=== PATIENT | female | born 1995 | race Caucasian/White ===

== ENCOUNTER → 2022-04-12 09:00 | Outpatient (CLI) | payer OTHER, MEDICAID, SELFPAY ==
--- NOTE | 2022-04-12 09:03 | DI.ECHO.S_ITS ---
[facility]---------+ [facility] +---------+ : : [address] : [address] [address] : : : : [id number] : : : : Phone: [phone]---------+ Echocardiogram Report + + :Name: LADONNA MOODY Study Date: 04/12/2022 Height: 67 in : :[facility] ReadingLocation: Weight: 130 lb: : Gender: Female BSA: 1.7 m2 : :: 1995 Age: 27 yrs BP: 95/66 mmHg: :Reason For Study: LEFT ATRIAL ENLARGEMENT, TACHYCARDIA : :Ordering Physician: NOLVIA, : :PAVAN Performed By: Shaunna Otero : :Referring: PAVAN DE SOUZA : + + Interpretation Summary Sinus arrhythmia noted and possisble pause with junctional escape noted. The left ventricle is normal in size and wall thickness. Left ventricular systolic function appears normal without focal wall motion abnormalities. The ejection fraction is estimated to be 60-65%. Diastolic parameters suggest probable normal left ventricular diastolic function and normal filling pressures. The right ventricle is normal in size and function. The right ventricular systolic pressure is estimated to be at least 20 mmHg based on an estimated right atrial pressure of 3 mm Hg. The left atrial size is normal. Right atrial size is normal. There is no significant valvular heart disease. The aortic root is normal size. Procedure: A two-dimensional transthoracic echocardiogram with color flow and Doppler was performed. The study quality was technically adequate. Comparison is made with the echocardiogram of 05/12/2015. The patient was in sinus tachycardia with heart rates between 91-105 bpm during the exam. Left Ventricle: The left ventricle is normal in size and wall thickness. Left ventricular systolic function appears normal without focal wall motion abnormalities. The ejection fraction is estimated to be 60-65%. Diastolic parameters suggest probable normal left ventricular diastolic function and normal filling pressures. Right Ventricle: The right ventricle is normal in size and function. Atria: The left atrial size is normal. Right atrial size is normal. The interatrial septum grossly appears intact with no obvious evidence for an atrial septal defect. Mitral Valve: The mitral valve is normal in structure and function. There is no mitral regurgitation noted. Aortic Valve: The aortic valve is trileaflet. The aortic valve opens well. There is no aortic valve stenosis. No aortic regurgitation is present. Tricuspid Valve: The tricuspid valve is normal in structure and function. There is mild tricuspid regurgitation. The right ventricular systolic pressure is estimated to be at least 20 mmHg based on an estimated right atrial pressure of 3 mm Hg. Pulmonic Valve: The pulmonic valve leaflets are thin and pliable; valve motion is normal. There is no pulmonic valvular regurgitation. There is no significant valvular heart disease. Great Vessels: The aortic root is normal size. The dimensions of the ascending aorta are normal. The IVC is of normal diameter and collapses greater than 50% with a sniff. This suggests a low right atrial pressure of 3 mm Hg. Pericardium/ Pleura There is no pericardial effusion. There is no pleural effusion. MMode/2D Measurements & Calculations LVIDd: 4.5 cm LVOT diam: 2.0 cm LVIDs: 2.9 cm Ao root diam: 2.7 cm FS: 36.2 % asc Aorta Diam: 2.7 cm EPSS: 0.25 cm Ao Arch Diam (Prox Trans): 2.0 cm IVSd: 0.55 cm LVPWd: 0.65 cm LV [place]. diameter/BSA (cm/m^2): 2.7 LV sys. diameter/BSA (cm/m^2): 1.7 LA A2 area: 15.6 cm2 RA long axis: 4.4 cm LA A4 area: 10.8 cm2 RA area: 12.8 cm2 LA length (vol): 4.5 cm RA vol: 31.9 ml LA vol: 32.0 ml RA : 19.0 ml/m2 LA vol index: 19.0 ml/m2 IVC diam: 1.3 cm RVD1 (basal): 2.6 cm RVD2 (mid): 2.2 cm TAPSE: 2.0 cm Doppler Measurements & Calculations Ao V2 max: 133.7 cm/sec LVOT Max Alberto: 110.1 cm/sec Ao V2 mean: 93.8 cm/sec LV V1 max P.9 mmHg Ao max P.2 mmHg LV V1 VTI: 19.2 cm Ao mean P.9 mmHg CÉSAR(I,D): 2.3 cm2 Ao V2 VTI: 26.2 cm CÉSAR(V,D): 2.6 cm2 sev ratio: 0.73 CÉSAR indexed to BSA (cm^2/m^2): 1.4 MV E max alberto: 67.5 cm/sec TR max alberto: 209.8 cm/sec MV A max alberto: 68.4 cm/sec TR max P.6 mmHg MV E/A: 0.99 PA V2 max: 98.0 cm/sec Med Peak E' Alberto: 13.4 cm/sec PA V2 mean: 66.1 cm/sec E/E' med: 5.0 PA mean P.0 mmHg Lat Peak E' Alberto: 15.9 cm/sec PA pr(Accel): 28.9 mmHg E/E' lat: 4.2 E/e' average: 4.6 MV dec time: 0.14 sec SV(LVOT): 59.8 ml Reading Physician:02:00 PM
== END ==
PROVIDERS: Referring Provider Physician Assistant Medical; Visit Provider Physician Assistant Medical
DX: I07.1 Rheumatic tricuspid insufficiency; R00.0 Tachycardia, unspecified
CPT/HCPCS: 93306